=== PATIENT | male | born 1990 | race Caucasian/White ===

== ENCOUNTER 2019-09-02 08:22 | Emergency (ER) | payer OTHER ==
[~2019-09-02] VITALS: Ht 188 cm; Wt 88.5 kg
[2019-09-02 08:47] VITALS: BP 143/75
--- NOTE | 2019-09-02 09:40 | RAD ---
CT HEAD AND CERVICAL SPINE WO Date: 09/02/2019 9:16 AM Clinical Indication: Comparison: None. Technique: 5 mm axial tomographic images were obtained of the head without contrast. These were viewed on brain and bone windows. CT imaging of the cervical spine was performed without contrast. Coronal and sagittal reformatted images were performed. One or more of the following dose reduction techniques were utilized: Automated exposure control (AEC), Adjustment of mA and/or kV according to patient size, Use of iterative reconstruction technique such as ASiR, CT scan done according to ALARA and image gently/image wisely HEAD FINDINGS: The brain parenchyma is normal in attenuation. No intra- or extra-axial mass or fluid collection. No acute hemorrhage. The ventricles are normal in size, shape, and morphology. The rolle-white matter junction is normal. The basilar cisterns are patent. Secretions in the frontal sinus. The visualized portions of the orbits and globes are normal. The mastoid air cells are clear. No aggressive osseous lesion or fracture. CERVICAL SPINE FINDINGS: Straightening of the cervical lordosis. No acute fracture. No aggressive lytic or blastic osseous lesion. The intervertebral disc heights are maintained. No high-grade spinal canal stenosis or neural foraminal narrowing. The thyroid gland is normal. No cervical lymphadenopathy. The visualized aerodigestive tract is unremarkable. The visualized lung apices are clear. IMPRESSION: 1. No acute intracranial process. 2. No acute osseous abnormality of the cervical spine. Electronically signed by: Jose Mccarthy MD (09/02/2019 9:38 AM) [facility]
[2019-09-02] MEDS ORDERED: CYCL10TA2 PO (10:23)
[2019-09-02] MEDS ORDERED: IBUP-1060 PO (10:23)
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
[2019-09-02] MEDS ORDERED: IBUPROFEN 400 MG TABLET. PO ONE (10:30)
== END 2019-09-02 10:35 | disposition home or self-care (01) ==
LOC: ER 08:22
DX: S06.0X0A Concussion without loss of consciousness, initial encounter (principal); S16.1XXA Strain of muscle, fascia and tendon at neck level, initial encounter; R41.0 Disorientation, unspecified; R11.0 Nausea; Z88.0 Allergy status to penicillin; Z90.89 Acquired absence of other organs; V43.52XA Car driver injured in collision with other type car in traffic accident, initial encounter; Y93.89 Activity, other specified; Y92.410 Unspecified street and highway as the place of occurrence of the external cause; Y99.8 Other external cause status
CPT/HCPCS: 70450; 72125; 99284

== ENCOUNTER 2022-02-08 19:02 | Emergency (ER) | payer OTHER ==
[~2022-02-08] VITALS: Ht 175.3 cm; Wt 81.8 kg
[~2022-02-08 19:02] MED LIST: CYCL10TA19 PO; IBUP-1060 PO
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
[2022-02-08] MEDS ORDERED: oxyCODONE IR 5 MG TABLET PO ONE (20:30)
--- NOTE | 2022-02-08 21:18 | RAD ---
Exam: Left foot 3 views. Left ankle 3 views INDICATION: Pain foot, injury TECHNIQUE: Frontal, lateral oblique views of the left foot and left ankle Comparisons: None FINDINGS: Ankle: There is a obliquely oriented fracture at the distal fibula. Mild overlying soft tissue swelling. Melissa nt spaces are well-maintained. Bone mineralization is normal. Foot: Bone mineralization is normal. No acute or healed fractures. Soft tissues are unremarkable. Joint spa faith are well-maintained. IMPRESSION: 1. Obliquely oriented fracture at the distal fibula. Medial clear space is not well assessed on nonw eightbearing views. [place] stress view or weightbearing view would better assess 2. No acute traumatic injury at the left foot. Electronically signed by: Emily Lombardi MD (02/08/2022 9:16 PM) [facility]
--- NOTE | 2022-02-08 21:18 | RAD ---
Exam: Left foot 3 views. Left ankle 3 views INDICATION: Pain foot, injury TECHNIQUE: Frontal, lateral oblique views of the left foot and left ankle Comparisons: None FINDINGS: Ankle: There is a obliquely oriented fracture at the distal fibula. Mild overlying soft tissue swelling. Melissa nt spaces are well-maintained. Bone mineralization is normal. Foot: Bone mineralization is normal. No acute or healed fractures. Soft tissues are unremarkable. Joint spa faith are well-maintained. IMPRESSION: 1. Obliquely oriented fracture at the distal fibula. Medial clear space is not well assessed on nonw eightbearing views. [place] stress view or weightbearing view would better assess 2. No acute traumatic injury at the left foot. Electronically signed by: Emily Lombardi MD (02/08/2022 9:16 PM) [facility]
[2022-02-08] MEDS ORDERED: HYDR-2761 PO (22:12)
[2022-02-08 22:45] VITALS: BP 120/57
== END 2022-02-08 22:45 | disposition home or self-care (01) ==
LOC: ER 19:02
DX: S82.832A Other fracture of upper and lower end of left fibula, initial encounter for closed fracture (principal); Z88.0 Allergy status to penicillin; W18.49XA Other slipping, tripping and stumbling without falling, initial encounter; Y93.01 Activity, walking, marching and hiking; Y92.89 Other specified places as the place of occurrence of the external cause; Y99.8 Other external cause status
CPT/HCPCS: 73610; 73630; 99284; A6450